=== PATIENT | male | born 1945 | race Caucasian/White ===

== ENCOUNTER → 2018-07-30 | Outpatient (CLI) | payer MEDICARE, BC ==
--- NOTE | 2018-07-30 09:32 | US ---
EXAMINATION TYPE: US groin LT DATE OF EXAM: 07/30/2018 COMPARISON: NONE CLINICAL HISTORY: 73-year-old male R19.09abdominal and pelvic swelling, mass and lump. Lymph node vijaya josias thrombosed vein. TECHNIQUE: Targeted ultrasound examination along the patient's left groin palpable site. Scanning was carried down or inferiorly along the medial aspect of the left thigh. Findings: [employer] notes: Within the left groin at the area of the patient's palpable lump, there is a diste nded and thrombosed superficial vein. This area is followed from the groin to just above the left kne e. It is noncompressible and does not show any blood flow within. Left greater saphenous vein is villatoro nt. IMPRESSION: Patient's left groin palpable lump corresponds to a distended and thrombosed superficial vein. This t hrombosed superficial vein is followed down to just above the knee. The greater saphenous vein is ass essed and remains patent. Note that the deep venous system was not evaluated.
== END | disposition home or self-care (01) ==
LOC: RADUSWWP 08:43
PROVIDERS: ATTEND Thoracic Surgery (Cardiothoracic Vascular Surgery)
DX: I82.812 Embolism and thrombosis of superficial veins of left lower extremity (principal)